=== PATIENT | female | born 1995 | race Caucasian/White ===

== ENCOUNTER 2019-03-08 15:10 | Emergency (ER) | payer OTHER, SELFPAY ==
[2019-03-08 15:11] VITALS: BP 133/76; PULSE 97; RESP 16; TEMP 36.8; O2SAT 100; BMI 20.3
--- NOTE | 2019-03-08 15:49 | ED.RN ---
pt reports she woke up with pain to left shoulder but then became much worse while working.
--- NOTE | 2019-03-08 16:24 | ED.DCSUM_ITS ---
- ER Visit Summary Date of Service: 03/08/19 Chief Complaint: Back pain History of Present Illness: The patient is a 23 F presents for work-related injury. This report left shoulder pain, however reports pain is in upper back. [id number]. 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 Symptoms worse with movement of her left shoulder. No radicular symptoms. No history of similar. No direct injuries. No medicines taken. No history of gastric ulcers or kidney injury. Physical Examination: General: Alert and oriented ?3, no acute distress HEENT: Normocephalic, atraumatic. Moist mucosa membranes Neck: supple, nontender. Cardiovascular: Regular rate and rhythm, no murmurs Respiratory: Normal breath sounds, symmetric, no distress Back: No midline tenderness. There is reproducible tenderness right paraspinal T5-T6 with vertebral spine rotated to the right side bent right, extended. Abdomen: Soft, nontender, nondistended Extremities: Nontender, no edema, pulses intact ?4 Neuro: no focal neurological deficits. Test Results: [] Emergency Department Course and Treatment: Nontraumatic injury, exam with somatic dysfunction thoracic spine. Verbal consent discussed with patient for osteopathic manipulation. HVLA performed standing position with good results. Has mild discomfort afterwards. Motrin started. To be continued, with appropriate work restrictions given. Follow-up with occupational health. Treatment Plan: [] Disposition: Discharge Impression: 1. Somatic dysfunction thoracic spine at T5-T6 This note was generated with [employer] dictation software. It may contain incorrect words, spelling, and punctuation that were not noted in review of the chart prior to signing ED Disposition - Plan for ED Patient: Disposition: Home or Assisted Living Diagnosis: Somatic dysfunction of thoracic region Instructions: ED Sprain Thoracic Spine Referrals: Care Physician,No Primary [Primary Care Provider] - Corporate,Care [GROUP OF PHYSICIANS] - 3-5 Days
[2019-03-08] MEDS: Ibuprofen 200 MG Tablet 400 MG PO (16:58)
== END 2019-03-08 16:59 | disposition home or self-care (01) ==
PROVIDERS: Emergency Provider Emergency Medicine
DX: M99.02 Segmental and somatic dysfunction of thoracic region (principal)
CPT/HCPCS: 99283